=== PATIENT | male | born 1975 | race Caucasian/White ===

== ENCOUNTER 2023-10-30 08:00 | Outpatient (CLI) | payer OTHER | END 2023-10-30 23:59 | disposition home or self-care (01) | LOC: LAB.N 08:00 | PROVIDERS: ATTEND Physician Assistant Medical | DX: L03.115 Cellulitis of right lower limb (principal) | CPT/HCPCS: 87070; 87181; 87205 ==

== ENCOUNTER 2023-11-01 12:46 | Emergency (ER) | payer OTHER ==
--- NOTE | 2023-11-01 12:54 | ED Physician Documentation ---
PD HPI SKIN - Stated complaint Stated Complaint: RT FT INJ - History obtained from History obtained from: Patient - History of Present Illness Timing - onset: How many weeks ago (1) Timing - duration: Weeks (1) Timing - details: Gradual onset, Still present (The patient started with some swelling bruising and tenderness on the right foot lateral/plantar near the fifth MT head. No skin lesion or wounds per se initially noted. Increasing redness and swellingthen opened to skin sore with weeping, and started on antibiotics just 2 days ago in clinic.) Location: RLE (Lateral/plantar aspect of the right foot near the fifth MT head.) Quality / character: Burning, Discolored, Swelling, Draining Associated symptoms: No: Fever, Myalgias, N/V/D Contributing factors: Other Similar symptoms before: Has not had sx before Recently seen: Clinic (started on Bactrim 2 days ago. Had xray and culture done, now showing MSSA today. ? small speck FB on xray without interventions. Pt not aware of any FB/puncture/etc. 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.) Review of Systems Constitutional: denies: Fever, Chills Neurologic: denies: Focal weakness, Numbness PD PAST MEDICAL HISTORY - Past Medical History Past Medical History: Yes Cardiovascular: None Respiratory: None Neuro: None Endocrine/Autoimmune: Type 2 diabetes GI: None : None HEENT: None Psych: None Musculoskeletal: None Derm: None - Past Surgical History Past Surgical History: Yes - Present Medications Home Medications: Ambulatory Orders Medication Instructions Recorded Confirmed Chlorhexidine Gluconate [Hibiclens] 15 ml TP DAILY #236 ml 11/01/23 HYDROcod/ACETAM 5/325 [[place] 5/325] 1 ea PO Q6H PRN #18 tablet 11/01/23 Mupirocin 2% Oint [Bactroban 2% 1 applic TOP TID #15 gm 11/01/23 Oint] Sulfamethox/Trimeth 800/160 1 tab PO 11/01/23 [Bactrim Ds] clindamycin HCL [Clindamycin HCl] 300 mg PO TID 7 Days #20 cap 11/01/23 - Allergies Allergies/Adverse Reactions: Allergies Allergy/AdvReac Type Severity Reaction Status Date / Time No Known Drug Allergies Allergy Verified 11/01/23 12:50 - Social History Does the pt smoke?: No Smoking Status: Never smoker Does the pt drink ETOH?: No Does the pt have substance abuse?: No - Immunizations Immunizations are current?: Yes - POLST Patient has POLST: No PD ED PE NORMAL - Vitals Vital signs reviewed: Yes - General General: Alert and oriented X 3, Well developed/nourished - Derm Derm: Normal color, Warm and dry - Extremities Extremities: Other (The right foot lateral aspect near the fifth MT head shows an area of skin degradation just to the fatty tissue approximately 1 cm diameter with surrounding redness. Weeping serous material but not purulent. Locally tender. Plantar aspect with a rounded less than 1 cm area of swelling/fluctuance.) - Neuro Neuro: No motor deficit, No sensory deficit Results - Vitals Vitals: Vital Signs - 24 hr 11/01/23 11/01/23 12:51 14:35 Temperature 36.5 C Heart Rate 94 76 Respiratory 16 18 Rate Blood Pressure 150/90 H 128/86 H O2 Saturation 99 98 Oxygen O2 Source Room air - Labs Labs: Laboratory Tests 11/01/23 11/01/23 13:24 13:24 WBC 10.0 RBC 4.25 L Hgb 12.0 L Hct 36.6 L MCV 86.1 MCH 28.2 MCHC 32.8 RDW 11.9 L Plt Count 291 MPV 9.2 Neut # (Auto) 7.9 H Lymph # (Auto) 1.0 L Patrick # (Auto) 1.0 Eos # (Auto) 0.1 Baso # (Auto) 0.0 Absolute Nucleated RBC 0.00 Nucleated RBC % 0.0 Sodium 132 L Potassium 4.6 H Chloride 99 L Carbon Dioxide 24 Anion Gap 9.0 BUN 19 Creatinine 1.0 Estimated GFR (MDRD) 79 L Glucose 421 H Calcium 9.5 Total Bilirubin 0.4 AST 20 ALT 22 Alkaline Phosphatase 113 Total Protein 7.4 Albumin 3.6 Globulin 3.8 Albumin/Globulin Ratio 0.9 L Lipase 15 - Rads (name of study) right foot Relevant Findings:: Prelim report reviewed (small speck FB noted plantar soft tissue just under skin layer apparently. Arthritic changes vs possible early osteo at bone in the area. ), EMP independent interpretation of test Procedures - Abscess I&D (location) right foot Preparation: Lidocaine 1% Incision: Incised with scalpel, Purulent drainage, Irrigated, Other (explore with forceps for FB, none encountered. On x-ray there had been a small speck foreign body. I presumed it would be underneath the area of local inflammation on the plantar aspect. Incision approximately 4 to 5 mm with a few drops of purulent material out so early abscess. Irrigated/explore) Other: Pt tolerated well, Dressing applied PD Medical Decision Making - ED course Complexity details: reviewed results (culture from 2 days ago.), considered differential, d/w patient Reviewed Lab Results: The culture from the clinic showed MS as a. He is on Bactrim which should be sensitive. The patient states the degree of redness has plateaued and not increased but has not really regressed yet. I thought augmenting the antibiotic with clindamycin would help with inflammation and also double down on the staff. He was given an IV dose of clindamycin along with some Toradol and pain medicine. He has signs of just local infection. No indications for lymphangitis nor sepsis. He can still get treated outpatient at this point. Discussion with he and his were to be wary of poor healing or clearing with concern of some arthritic changes on the x-ray that could suggest early bone infection. At this point the duration of his symptoms are such that I would not think osteo as yet and so defer further workup such as MRI at this time. He should recheck however in a few days with primary care or clinic and return here if worsening. I think incising the area and getting some purulence out even though small will help decompress the infection as well. Departure - Departure Disposition: 01 Home, Self Care Clinical Impression: Foot infection Condition: Stable Record reviewed to determine appropriate education?: Yes Instructions: ED Abscess IandD Prescriptions: Mupirocin 2% Oint [Bactroban 2% Oint] 1 applic TOP TID #15 gm clindamycin HCL [Clindamycin HCl] 300 mg PO TID 7 Days #20 cap Chlorhexidine Gluconate [Hibiclens] 15 ml TP DAILY #236 ml HYDROcod/ACETAM 5/325 [[place] 5/325] 1 ea PO Q6H PRN #18 tablet PRN Reason: Pain Comments: On your x-ray, there was a very small speck of dense material. This could be glass or metal. It did not look organic necessarily like a splinter. Unclear how long that may have been there. I did explore to try to see if I could retrieve it but I do not feel that I pulled it out. Unclear how much it needs to come out per se. Incidentally though the area I did incise had a small pus pocket with a few drops that came out with some bleeding. This is good in the sense of allowing better drainage of the infection. Soak the foot in warm water. You can use chlorhexidine and there to as an antiseptic dilute Li. Do that a few times daily to help promote better drainage. Then apply mupirocin antibiotic ointment and dressings. Elevate rest your foot often to help reduce swelling. I would add a second antibiotic to your current 1 and see if you get a more effective clearing of the infection. Tylenol or ibuprofen as needed for pains. Add hydrocodone/acetaminophen if needed for worse pain. I would anticipate needing this just the next few days as the infection is clearing. Follow-up with your primary care or the walk-in clinic if not improved well over the next several days. Return to the ER if you have significant worsening in particular spreading up the leg, red streaks or any systemic symptoms such as fever chills nausea etc. On the x-ray there was some arthritic type changes near the site of the infection. Consideration would be an early involvement of the bone in that area. This may need to get evaluated more if you are having difficulty clearing the infection or such. I sent your prescriptions to your preferred pharmacy. I am prescribing a short course of narcotic pain medication for you. These are potentially dangerous and addictive medications that should be used carefully. These medications may constipate you. Take an efkt-cis-vapholh stool softener such as docusate twice daily with plenty of water while taking these medications. If you go 24 hours without a bowel movement, take [id number] MiraLAX, per package instructions. Do not drink or drive while taking these medications. If you received narcotic or sedating medications while in the emergency department do not drive for 24 hours. Store this medication in a safe, secure place and out of reach of children. It is a violation of federal law to give or sell this medication to another person or to use in a manner other than prescribed. The ED will not refill narcotic prescriptions, including prescriptions lost or stolen. You can dispose of unwanted medications at the [facility]'s office or at several pharmacies such as [facility]. Forms: PCP List Discharge Date/Time: 11/01/23 14:32
[2023-11-01 13:28] LABS: BASOPHILS % (AUTO) 0.2 %; EOSINOPHILS # (AUTO) 0.1 10^3/uL (0.0-0.7); EOSINOPHILS % (AUTO) 1.1 %; HCT - HEMATOCRIT 36.6 % (42.0-52.0); LYMPHOCYTES % (AUTO) 10.2 %; MEAN CORPUSCULAR HEMOGLOBIN 28.2 pg (27.0-31.0); MEAN CORPUSCULAR HGB CONC 32.8 g/dL (32.0-36.0); MEAN CORPUSCULAR VOLUME 86.1 fL (80.0-94.0); MEAN PLATELET VOLUME 9.2 fL (7.4-11.4); MONOCYTES % (AUTO) 9.6 %; NEUTROPHILS # (AUTO) 7.9 10^3/uL (1.5-6.6); NEUTROPHILS % (AUTO) 78.2 %; PLT - PLATELET COUNT 291 10^3/uL (130-450); RED BLOOD COUNT 4.25 10^6/uL (4.70-6.10); RED CELL DISTRIBUTION WIDTH 11.9 % (12.0-15.0)
[2023-11-01] MEDS: KETOROLAC 15 MG/ML VIAL IVP STA (13:29)
[2023-11-01] MEDS: cefTRIAXone 1 GM VIAL IVP STA (13:32)
[2023-11-01] MEDS: CLINDAMYCIN 600 MG/50 ML 50 ML IV ONE (13:35)
[2023-11-01] MEDS: MUPIROCIN 2% OINT 1 GM TOP STA (13:35)
[2023-11-01 13:46] LABS: ALBUMIN 3.6 g/dL (3.2-5.5); ALBUMIN/GLOBULIN RATIO 0.9 (1.0-2.2); BILIRUBIN,TOTAL 0.4 mg/dL (0.2-1.0); CALCIUM 9.5 mg/dL (8.5-10.3); POTASSIUM 4.6 mmol/L (3.5-4.5); TOTAL PROTEIN 7.4 g/dL (6.4-8.9)
--- NOTE | 2023-11-01 14:04 | XRAY Report ---
PROCEDURE: Foot 3+V RT INDICATIONS: foot skin infection; ? FB TECHNIQUE: 3 views of the foot were acquired. COMPARISON: None. FINDINGS: Bones: No fractures or dislocations. There is potential early erosion involving the proximal aspect of the proximal phalanx of the fifth toe. Soft tissues: There is a soft tissue wound with soft tissue thickening and radiopaque debris adjacen t to the fifth metatarsophalangeal joint. Atherosclerotic calcification is seen. IMPRESSION: Soft tissue thickening can be seen adjacent to the fifth metatarsophalangeal joint, with radiopaque d ebris. Potential early osteomyelitis involving the proximal aspect of the proximal phalanx of the fifth toe. If there is strong clinical concern for developing osteomyelitis in this patient with this given hist ory, then please consider a dedicated MRI (without and with contrast) for further evaluation (assumin g that there is no contraindication). Reviewed by: Marcus Fitzgerald MD on 11/01/2023 1:03 PM [facility] Approved by: Marcus Fitzgerald MD on 11/01/2023 1:03 PM [facility] Station ID: [id number]
[2023-11-01 14:42] VITALS: O2SAT 98
[2023-11-01 15:18] VITALS: BP 181/92
== END 2023-11-01 15:13 | disposition home or self-care (01) ==
LOC: ED 12:46
DX: L02.611 Cutaneous abscess of right foot (principal); B95.61 Methicillin susceptible Staphylococcus aureus infection as the cause of diseases classified elsewhere; W45.8XXA Other foreign body or object entering through skin, initial encounter
CPT/HCPCS: 10060; 36415; 73630; 80053; 83690; 85025; 96365; 96375; 99284; A9270

== ENCOUNTER 2024-01-08 07:45 | Outpatient (CLI) | payer OTHER ==
[2024-01-08 12:33] LABS: ESTIMATED AVERAGE GLUCOSE 232 mg/dL (70-100); HEMOGLOBIN A1c% 9.7 % (4.27-6.07)
[2024-01-08 12:36] LABS: BASOPHILS % (AUTO) 0.4 %; EOSINOPHILS # (AUTO) 0.1 10^3/uL (0.0-0.7); EOSINOPHILS % (AUTO) 2.8 %; HCT - HEMATOCRIT 41.1 % (42.0-52.0); HGB - HEMOGLOBIN 13.3 g/dL (14.0-18.0); LYMPHOCYTES # (AUTO) 1.8 10^3/uL (1.5-3.5); LYMPHOCYTES % (AUTO) 35.9 %; MEAN CORPUSCULAR HEMOGLOBIN 28.7 pg (27.0-31.0); MEAN CORPUSCULAR HGB CONC 32.4 g/dL (32.0-36.0); MEAN CORPUSCULAR VOLUME 88.8 fL (80.0-94.0); MEAN PLATELET VOLUME 10.9 fL (7.4-11.4); MONOCYTES # (AUTO) 0.5 10^3/uL (0.0-1.0); MONOCYTES % (AUTO) 10.6 %; NEUTROPHILS # (AUTO) 2.5 10^3/uL (1.5-6.6); NEUTROPHILS % (AUTO) 50.1 %; PLT - PLATELET COUNT 200 10^3/uL (130-450); RED BLOOD COUNT 4.63 10^6/uL (4.70-6.10); RED CELL DISTRIBUTION WIDTH 14.6 % (12.0-15.0)
[2024-01-08 12:55] LABS: ALBUMIN 4.5 g/dL (3.2-5.5); ALBUMIN/GLOBULIN RATIO 1.5 (1.0-2.2); ALKALINE PHOSPHATASE 66 IU/L (42-121); ALT ALANINE AMINOTRANSFERASE 16 IU/L (10-60); AST ASPARTATE AMINOTRANSFERASE 18 IU/L (10-42); BILIRUBIN,TOTAL 0.4 mg/dL (0.2-1.0); BUN - BLOOD UREA NITROGEN 26 mg/dL (6-20); CARBON DIOXIDE - CO2 25 mmol/L (21-32); CHLORIDE 104 mmol/L (101-111); CHOL/HDL RATIO 4.7 (<5.0); CHOLESTEROL 189 mg/dL; CREATININE 1.2 mg/dL (0.6-1.3); CRP - C-REACTIVE PROTEIN < 0.5 mg/dL (<0.5); GFR - MDRD 64 (>89); GLUCOSE 196 mg/dL (74-104); HDL CHOLESTEROL 40 mg/dL; LDL CHOLESTEROL,CALCULATED 113 mg/dL; LDL/HDL RATIO 2.8 (<3.6); POTASSIUM 4.7 mmol/L (3.5-4.5); SODIUM 136 mmol/L (135-145); TOTAL PROTEIN 7.6 g/dL (6.4-8.9); TRIGLYCERIDES 181 mg/dL (48-352); VLDL CHOLESTEROL 36 mg/dL
[2024-01-08 13:05] LABS: CREATININE,URINE 276.8 mg/dL; MICROALBUM/CREATININE RATIO,UR 39.7 ug/mg (<30.0)
== END 2024-01-08 07:46 | disposition home or self-care (01) ==
LOC: LAB.N 07:45
PROVIDERS: ATTEND Physician Assistant
DX: E11.9 Type 2 diabetes mellitus without complications (principal); Z12.5 Encounter for screening for malignant neoplasm of prostate; L03.115 Cellulitis of right lower limb
CPT/HCPCS: 36415; 80053; 80061; 82043; 82570; 83036; 83721; 84153; 84443; 85025; 86140